=== PATIENT | male | born 1960 | race Two or more races ===

== ENCOUNTER 2018-05-03 17:52 | Observation (INO) | payer MEDICAID ==
[~2018-05-03] VITALS: Ht 172.7 cm; Wt 70.5 kg
--- NOTE | 2018-05-03 18:17 | NUR ---
First contact with pt. Pt c/o chest pain yesterday, SOB today. Pt reports "pain" has resolved but is now feeling chest pressure. Pt states pressure is "not so bad". Pt speaking in full sentences, resp even and unlabored, NADN. Continuous heart, oxygen and BP monitors applied, all safety measures observed.
[2018-05-03] MEDS ORDERED: LISI2.5T PO (18:23)
[2018-05-03] MEDS ORDERED: ATOR20TA PO (18:23)
--- NOTE | 2018-05-03 18:23 | NUR ---
received report from Justine. pt upright on gurney awake & calm, walking around in room talking on cell phone, responds approp to staff, NAD, comfort measures provided, family at BS, call light within reach.
[2018-05-03] MEDS ORDERED: ASPIRIN 81 MG TABLET CHEW PO ONE (18:30)
[2018-05-03] MEDS ORDERED: SODIUM CHLORIDE FLUSH 10ML SYR IVF ONE (18:30)
[2018-05-03] MEDS ORDERED: NITROGLYCERIN SINGLE TAB 0.4 MG SL PRN (18:30)
[2018-05-03 18:38] LABS: BASOPHILS # (AUTO) 0.04 x10^3/uL (0-0.1); BASOPHILS % (AUTO) 1 % (0-1); EOSINOPHILS # (AUTO) 0.17 x10^3/uL (0-0.4); EOSINOPHILS % (AUTO) 2 % (1-7); LYMPHOCYTES % (AUTO) 32 % (22-44); MD NO; MEAN CORPUSCULAR VOLUME 91.3 fL (81-97); MEAN PLATELET VOLUME 7.4 fL (7.4-10.4); MONOCYTES # (AUTO) 0.52 x10^3/uL (0.2-0.8); MONOCYTES % (AUTO) 6 % (2-9); NEUTROPHILS # (AUTO) 4.77 x10^3/uL (1.8-6.8); NEUTROPHILS % (AUTO) 59 % (42-75); PLATELET COUNT 301 x10^3/uL (130-400); RED BLOOD COUNT 5.49 x10^6/uL (4.38-5.82); RED CELL DISTRIBUTION WIDTH 13.1 % (9.4-14.8)
--- NOTE | 2018-05-03 18:41 | NUR ---
pt report no change in comfort/no CP, refuses addt'l NGT at this time.
[2018-05-03 18:45] LABS: ALBUMIN 4.2 g/dL (3.4-5.0); ANION GAP 7 mmol/L (5-15); CHLORIDE 107 mmol/L (98-107)
[2018-05-03 18:50] LABS: CREATININE 0.81 mg/dL (0.7-1.3); TROPONIN I < 0.015 ng/mL (0.000-0.045)
--- NOTE | 2018-05-03 19:02 | NUR ---
pt remains upright on gurney awake & comfortable, responds approp to staff, NAD, comfort measures provided, call light within reach.
[2018-05-03] MEDS ORDERED: NITROGLYCERIN SINGLE TAB 0.4 MG SL ONE (19:26)
[2018-05-03] MEDS ORDERED: ASPIRIN 81 MG TABLET CHEW ONE (19:26)
--- NOTE | 2018-05-03 20:01 | NUR ---
pt upright on gurney awake & comfortable, responds approp to staff, NAD, comfort measures provided, call light within reach.
--- NOTE | 2018-05-03 21:05 | NUR ---
pt remains upright on gurney awake & comfortable, responds approp to staff, NAD, comfort measures provided, call light within reach.
--- NOTE | 2018-05-03 21:16 | NUR ---
Pt to be admitted to [facility], room 508-2. Report called to Keeley.
[2018-05-03] MEDS ORDERED: SODIUM CHLORIDE 0.9% 1,000 ML IV SCH (22:20)
[2018-05-03] MEDS ORDERED: hydrALAzine 20 MG/ML, 1ML IVPush PRN (22:30)
[2018-05-03] MEDS ORDERED: ONDANSETRON 2MG/ML, 2ML IVPush PRN (22:30)
[2018-05-03] MEDS ORDERED: PROMETHAZINE 25 MG/ML, 1ML IM PRN (22:30)
[2018-05-03] MEDS ORDERED: BISACODYL 10 MG SUPP PR PRN (22:30)
[2018-05-03] MEDS ORDERED: NITROGLYCERIN 0.4 MG BOTTLE (25 TABS) SL PRN (22:30)
[2018-05-03] MEDS ORDERED: POLYETHYLENE GLYCOL 17 GM PACKET PO PRN (22:30)
[2018-05-03] MEDS ORDERED: ONDANSETRON ODT 4 MG PO PRN (22:30)
[2018-05-03] MEDS ORDERED: DOCUSATE 100 MG CAPSULE PO PRN (22:30)
[2018-05-03] MEDS ORDERED: OXYcodone IR 5MG TABLET PO PRN (22:30)
[2018-05-03] MEDS ORDERED: LABETALOL 5MG/ML, 20ML IVPush PRN (22:30)
[2018-05-03] MEDS ORDERED: ACETAMINOPHEN 325 MG TABLET PO PRN (22:30)
[2018-05-03] MEDS ORDERED: morphine SULFATE 10 MG/ML, 1ML IVPush PRN (22:30)
[2018-05-03] MEDS ORDERED: ATORVASTATIN 20 MG TABLET PO SCH (23:00)
[2018-05-03] MEDS: HEPARIN 5,000 UNITS/ML, 1ML SQ SCH (23:40)
[2018-05-04 00:20] VITALS: BP 130/61
[2018-05-04 00:28] LABS: TROPONIN I < 0.015 ng/mL (0.000-0.045)
[2018-05-04 00:42] LABS: FREE T4 (FREE THYROXINE) 0.88 ng/dL (0.76-1.46); THYROID STIMULATING HORMONE 1.98 mIU/L (0.358-3.740)
[2018-05-04 01:54] VITALS: BP 113/65
[2018-05-04 05:25] LABS: BASOPHILS # (AUTO) 0.03 x10^3/uL (0-0.1); BASOPHILS % (AUTO) 1 % (0-1); EOSINOPHILS # (AUTO) 0.15 x10^3/uL (0-0.4); EOSINOPHILS % (AUTO) 2 % (1-7); LYMPHOCYTES % (AUTO) 29 % (22-44); MD NO; MEAN CORPUSCULAR VOLUME 91.2 fL (81-97); MEAN PLATELET VOLUME 7.5 fL (7.4-10.4); MONOCYTES % (AUTO) 10 % (2-9); NEUTROPHILS # (AUTO) 4.05 x10^3/uL (1.8-6.8); NEUTROPHILS % (AUTO) 58 % (42-75); PLATELET COUNT 268 x10^3/uL (130-400); RED BLOOD COUNT 4.99 x10^6/uL (4.38-5.82); RED CELL DISTRIBUTION WIDTH 12.7 % (9.4-14.8)
[2018-05-04 05:36] LABS: ALBUMIN 3.3 g/dL (3.4-5.0); ANION GAP 5 mmol/L (5-15); CHLORIDE 109 mmol/L (98-107)
[2018-05-04 05:48] LABS: ALANINE AMINOTRANSFERASE 19 U/L (12-78); ALKALINE PHOSPHATASE 56 U/L (45-117); BILIRUBIN,TOTAL 1.9 mg/dL (0.2-1.0); CHOL/HDL RATIO 3.4; CHOLESTEROL, TOTAL 153 mg/dL (140-239); CREATININE 0.77 mg/dL (0.7-1.3); HDL CHOL % 29 % (26-37); HDL CHOLESTEROL (DIRECT) 45 mg/dL (40-60); LDL CHOLESTEROL,CALCULATED 85 mg/dL (54-169); LDL/HDL RATIO 1.9 (0.5-3.0); TOTAL PROTEIN 6.4 g/dL (6.4-8.2); TRIGLYCERIDES 117 mg/dL (50-200); VLDL CHOLESTEROL 23 mg/dL (0-25)
[2018-05-04] MEDS ORDERED: ASPIRIN 325 MG TABLET EC PO SCH (06:00)
[2018-05-04] MEDS: HEPARIN 5,000 UNITS/ML, 1ML SQ SCH (06:12)
[2018-05-04 06:17] LABS: TROPONIN I < 0.015 ng/mL (0.000-0.045)
[2018-05-04 07:50] VITALS: BP 127/75
[2018-05-04] MEDS ORDERED: LISINOPRIL 5 MG TABLET PO SCH (09:00)
[2018-05-04] MEDS ORDERED: REGADENOSON 0.4 MG/5 ML SYRINGE ONE (10:39)
[2018-05-04 13:08] VITALS: BP 118/61
== END 2018-05-04 14:21 | disposition home or self-care (01) ==
LOC: ED 20:42 → 5SO 20:50 → INTOOBSV 20:50 → 5SO 05-04 03:23 → DCLOUNGE 05-04 14:05
PROVIDERS: ADMIT Internal Medicine; ATTEND Internal Medicine
DX: R07.89 Other chest pain (principal); I10 Essential (primary) hypertension; E78.5 Hyperlipidemia, unspecified; R42 Dizziness and giddiness; R06.00 Dyspnea, unspecified; R00.2 Palpitations; M48.02 Spinal stenosis, cervical region
CPT/HCPCS: 36415; 71045; 76700; 78452; 80048; 80053; 80061; 82040; 83036; 83735; 83880; 84439; 84443; 84484; 85025; 93005; 93017; 93306; 96372; 99284; A9502; C9898; G0378; J1644; J7030; J2785